=== PATIENT | female | born 1950 | race African-American/Black ===

== ENCOUNTER 2017-08-08 20:48 | Emergency (ER) | payer OTHER ==
[2017-08-08 20:57] VITALS: BP 141/83; PULSE 74; TEMP 97.3; BMI 30.9
--- NOTE | 2017-08-08 21:28 | PDOC ---
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 Patient states she lost her balance after stepping on a toy and fell. She remembers the entire incident, denies hitting head, denies loc , dizziness, heart palpitations. Her daughter was downstairs and immediately went upstairs to investigate after hearing the fall. She found her mother lying on the ground alert and oriented. Patient decided to come to ED d/t weakness lifting her left arm above her head. Patient is not on any blood thinners. Past History - Past Medical History Allergies/Adverse Reactions: Allergies Allergy/AdvReac Type Severity Reaction Status Date / Time No Known Allergies Allergy Verified 08/08/17 21:05 Home Medications: Ambulatory Orders Aspirin 325 mg PO DAILY 08/08/17 Atorvastatin Ca [Lipitor] 10 mg PO HS 08/08/17 Metformin HCl 500 mg PO DAILY 08/08/17 Nifedipine [Nifedipine ER] 60 mg PO DAILY 08/08/17 Spironolactone [Aldactone] 25 mg PO DAILY 08/08/17 Ibuprofen [Motrin -] 600 mg PO TID PRN #21 tablet 08/09/17 Methocarbamol [Robaxin -] 500 mg PO BID PRN #14 tablet 08/09/17 CVA: Yes Diabetes: Yes HTN: Yes - Suicide/Smoking/Psychosocial Hx Smoking History: Never smoked Have you smoked in the past 12 months: No Information on smoking cessation initiated: No Hx Alcohol Use: No Drug/Substance Use Hx: No Review of Systems - Review of Systems Able to Perform ROS?: Yes Comments:: GEN: Denies fever, chills, recent illness HEENTM: Denies sore throat, neck pain, changes in vision, changes in hearing, ear pain, tinnitus Respiratory: Denies cough, wheezing, shortness of breath Cardiac: Denies chest pain, palpitations, lightheadedness, diaphoresis ABD/GI: Denies abdominal pain, nausea, vomiting, diarrhea, constipation : Denies dysuria, burning on urination, increased frequency of urination Musculoskeletal: Endorses left shoulder pain with radiation down her arm, pain to 4th and 5th digits of the left hand. Integumentary: Denies rashes, bruises Neurological: Endorses left arm weakness (acute on chronic); Denies ARDON, dizziness, loss of consciousness, tingling, numbness Hematologic/Lymphatic: Denies anemia, easy bleeding, history of blood clots. All Other Systems Reviewed and Negative Is the patient limited Amharic proficient: No *Physical Exam - Vital Signs Last Vital Signs Temp Pulse Resp BP Pulse Ox 97.3 F L 74 19 141/83 99 08/08/17 20:55 08/08/17 20:55 08/08/17 20:55 08/08/17 20:55 08/08/17 20:55 - Physical Exam Comments: GENERAL: AAOx3, nourished and generally well appearing, NAD HEAD: NCAT EYES: mild ptosis in left eye lid, PERRLA, EOMI, sclera anicteric, conjunctiva clear ENT: Auricles normal inspection, hearing grossly normal, nares patent, no nasal discharge, no congestion, oropharynx clear without exudates, MMM NECK: supple, normal ROM, no LAD, no JVD, no masses, no midline tenderness, mild tenderness to left trapezius to the shoulder RESP: speaking in full sentences, lungs CTAB, symmetrical chest expansion, no respiratory distress HEART: RRR, normal S1-S2, no MRG, peripheral pulses normal and equal bilaterally ABDOMEN: soft, NTND, nlBSx4, no guarding, no rebound, no masses MUSCULOSKELETAL: no CVA Tenderness EXTREMITIES: normal inspection, moving all extremities, full ROM, strength 5/5, sensation grossly intact, no deformities LEFT SHOULDER: mildly ttp over GH joint, no edema, no deformities, no pain on active and passive ROM, able to resist opposing force in all directions w/o pain NEUROLOGICAL: CN II-XII grossly intact, normal speech, normal gait, no focal sensorimotor deficits SKIN: warm, dry, normal turgor, no rashes or lesions noted. Medical Decision Making - Medical Decision Making 66 year old female with pain and weakness of left arm s/p conscious mechanical fall w/o head trauma or loc. arm ttp with radiation to fingers, no neurological deficits, no c/o headache ddx includes but is not limited to accidental trip, cervical fracture, MS pains Pain control Cervical CT Monitor and reassess DC with analgesics if CT negative Discussed negative CT with patient. Patient pain well controlled Discussed return precautions and need for patient to follow up with primary care doctor if the pain does not improve in the next few days or she continues to experience weakness. Patient acknowledged understanding and comfortable with discharge. *DC/Admit/Observation/Transfer Diagnosis at time of Disposition: Muscle pain - Discharge Dispostion Disposition: HOME Condition at time of disposition: Stable Admit: No - Prescriptions Prescriptions: Ibuprofen [Motrin -] 600 mg PO TID PRN #21 tablet PRN Reason: Pain Methocarbamol [Robaxin -] 500 mg PO BID PRN #14 tablet PRN Reason: Muscle Spasms - Referrals Referrals: Pamela Medina MD [Primary Care Provider] - - Patient Instructions Printed Discharge Instructions: How to Prevent Falls Additional Instructions: Prescriptions were sent to the [facility] pharmacy on [facility] You can take 1 tablet Motrin every 8 hours if your have shoulder pain You can also take 1 tablet Robaxin twice a day for muscle pain/spasms Use care when taking this medicine because it can make you tired return to the emergency department immediately if you experience significant worsening of your pain or develop any new or concerning symptoms including weakness, confusion, numbness in your arm. You should follow up with your primary care physician if you continue to experience weakness in your arm for a possible MRI. Print Language: BRAZILIAN
[2017-08-08] MEDS ORDERED: METHOCARBAMOL 500 MG TABLET PO ONE (22:32)
[2017-08-08] MEDS ORDERED: KETOROLAC TROMETHAMINE 10 MG TABLET PO ONE (22:32)
[2017-08-08] MEDS ORDERED: KETOROLAC TROMETHAMINE 15 MG/ML VIAL IM ONE (22:35)
[2017-08-08] MEDS ORDERED: KETOROLAC TROMETHAMINE 15 MG/ML VIAL ONE (22:53)
[2017-08-08] MEDS ORDERED: METHOCARBAMOL 500 MG TABLET ONE (22:53)
== END 2017-08-09 00:45 | disposition home or self-care (01) ==
LOC: JER 20:48
PROC: 3E0233Z Introduction of Anti-inflammatory into Muscle, Percutaneous Approach (ICD-10-PCS; principal; 2017-08-08)
DX: M79.602 Pain in left arm (principal); W18.09XA Striking against other object with subsequent fall, initial encounter; Y93.89 Activity, other specified; Y92.018 Other place in single-family (private) house as the place of occurrence of the external cause; E11.9 Type 2 diabetes mellitus without complications; Z79.84 Long term (current) use of oral hypoglycemic drugs; I69.854 Hemiplegia and hemiparesis following other cerebrovascular disease affecting left non-dominant side; Z85.3 Personal history of malignant neoplasm of breast
CPT/HCPCS: 72125-TC; 96372; 99281-25

== ENCOUNTER 2021-07-02 19:55 | Inpatient (IN) | payer OTHER ==
[2021-07-02 20:25] VITALS: BMI 33.6
[2021-07-02] MEDS ORDERED: SODIUM CHLORIDE 1,000 ML IV SCH (20:45)
[2021-07-02 21:45] LABS: PH,URINE 6.5 (5.0-8.0); URINE APPEARANCE CLEAR; URINE BILIRUBIN NEGATIVE (NEGATIVE); URINE COLOR YELLOW; URINE GLUCOSE (UA) NEGATIVE (NEGATIVE); URINE KETONE NEGATIVE (NEGATIVE); URINE LEUK ESTERASE NEGATIVE (NEGATIVE); URINE NITRITE NEGATIVE (NEGATIVE); URINE PROTEIN NEGATIVE (NEGATIVE); URINE UROBILINOGEN 0.2 mg/dL (0.2-1.0)
[2021-07-02 22:04] LABS: BASO % 0.6 % (0-2.0); EOS % 0.3 % (0-4.5); HEMATOCRIT 37.1 % (32.4-45.2); HEMOGLOBIN 12.3 GM/dL (10.7-15.3); LYMPH % 14.7 % (8-40); MCHC 33.2 g/dl (32.0-36.0); MEAN CELL VOLUME 87.4 fl (80-96); MEAN PLT VOLUME 11.3 fl (7.5-11.1); MONO % 10.8 % (3.8-10.2); NEUT % 73.6 % (42.8-82.8); PLATELET COUNT 107 10^3/uL (134-434); RBC 4.25 M/mm3 (3.60-5.2); RDW 15.7 % (11.6-15.6); WHITE BLOOD COUNT 2.9 K/mm3 (4.0-10.0)
[2021-07-02 22:20] LABS: ALBUMIN 3.7 g/dl (3.4-5.0); MAGNESIUM 1.7 mg/dL (1.8-2.4)
[2021-07-02 22:21] LABS: CALCIUM 9.7 mg/dL (8.5-10.1)
[2021-07-02 22:23] LABS: URIC ACID 3.7 mg/dL (2.6-7.2)
[2021-07-02] MEDS ORDERED: LACTATED RINGERS SOLUTION 1000 ML INFUS.BAG IV ONE (22:23)
[2021-07-02 22:24] LABS: CREATININE 0.9 mg/dL (0.55-1.3); PHOSPHOROUS 3.6 mg/dL (2.5-4.9)
[2021-07-02 22:25] LABS: TOT PROT 7.3 g/dl (6.4-8.2)
[2021-07-02 22:26] LABS: BILIRUBIN,TOTAL 0.4 mg/dL (0.2-1)
[2021-07-02 22:28] LABS: INR 0.95 (0.83-1.09); PROTHROMBIN TIME (PATIENT) 11.5 SEC (9.7-13.0)
[2021-07-02 22:30] LABS: ACTIVATED PTT 32.1 SECONDS (25.2-36.5)
[2021-07-03] MEDS ORDERED: ACETAMINOPHEN 1000 MG/100 ML VIAL (NON FORMULARY) IVPB ONE (01:52)
[2021-07-03] MEDS ORDERED: ACETAMINOPHEN INJECTION 100 ML IVPB ONE (01:54)
[2021-07-03] MEDS ORDERED: LABETALOL HCL 5 MG/1 ML (100MG/20 ML VIAL) IVPUSH ONE ×2 (02:46→08:05)
[2021-07-03] MEDS ORDERED: LABETALOL HCL 5 MG/1 ML (100MG/20 ML VIAL) ONE ×2 (03:13→08:21)
[2021-07-03 08:10] LABS: BASO % 0.6 % (0-2.0); EOS % 0.1 % (0-4.5); HEMATOCRIT 36.3 % (32.4-45.2); LYMPH % 15.4 % (8-40); MCH 28.7 pg (25.7-33.7); MCHC 33.1 g/dl (32.0-36.0); MEAN CELL VOLUME 86.8 fl (80-96); MEAN PLT VOLUME 11.1 fl (7.5-11.1); MONO % 12.7 % (3.8-10.2); NEUT % 71.2 % (42.8-82.8); PLATELET COUNT 92 10^3/uL (134-434); RBC 4.18 M/mm3 (3.60-5.2); RDW 15.6 % (11.6-15.6); WHITE BLOOD COUNT 3.4 K/mm3 (4.0-10.0)
[2021-07-03 08:20] LABS: INR 1.02 (0.83-1.09); PROTHROMBIN TIME (PATIENT) 12.5 SEC (9.7-13.0)
[2021-07-03 08:23] LABS: ACTIVATED PTT 27.3 SECONDS (25.2-36.5)
[2021-07-03 08:24] LABS: CALCIUM 9.1 mg/dL (8.5-10.1)
[2021-07-03 08:25] LABS: ALBUMIN 3.5 g/dl (3.4-5.0); BLOOD UREA NITROGEN 8.7 mg/dL (7-18); MAGNESIUM 1.7 mg/dL (1.8-2.4)
[2021-07-03 08:28] LABS: CREATININE 0.9 mg/dL (0.55-1.3); PHOSPHOROUS 3.8 mg/dL (2.5-4.9)
[2021-07-03 08:29] LABS: BILIRUBIN,TOTAL 0.4 mg/dL (0.2-1)
[2021-07-03] MEDS ORDERED: ASPIRIN 81 MG CHEWABLE TABLETS PO SCH (10:00)
[2021-07-03] MEDS ORDERED: LOSARTAN POTASSIUM 50 MG TABLET PO SCH (10:00)
[2021-07-03] MEDS ORDERED: ASPIRIN COATED 81 MG TABLET.EC ONE (10:20)
[2021-07-03] MEDS ORDERED: LOSARTAN POTASSIUM 50 MG TABLET ONE (10:20)
[2021-07-03] MEDS ORDERED: CLOPIDOGREL BISULFATE 75 MG TABLET (FP) ONE (10:20)
[2021-07-03] MEDS: ASPIRIN COATED 81 MG TABLET.EC PO SCH (10:30)
[2021-07-03] MEDS: CLOPIDOGREL BISULFATE 75 MG TABLET (FP) PO SCH (10:30)
[2021-07-03] MEDS ORDERED: LOSARTAN POTASSIUM 50 MG TABLET PO ONE (14:50)
[2021-07-03] MEDS: LETROZOLE 2.5 MG TABLET (FP) PO SCH (17:41)
[2021-07-03] MEDS ORDERED: ONDANSETRON 4 MG/2 ML VIAL IVPUSH ONE (17:50)
[2021-07-03] MEDS: ATORVASTATIN CA 40 MG TABLET (FP) PO SCH (21:09)
[2021-07-03] MEDS: ACYCLOVIR 400 MG TABLET PO SCH (21:09)
[2021-07-03] MEDS: levETIRAcetam 500 MG TABLET (FP) PO SCH (21:09)
[2021-07-03] MEDS: MIRTAZAPINE 15 MG TABLET (FP) PO SCH (21:36)
[2021-07-03] MEDS ORDERED: PATIENT'S OWN MEDICATION (NON-FORMULARY) (Levetiracetam [Levetiracetam] 750 MG Tablet) PO SCH (22:00)
[2021-07-03] MEDS ORDERED: ATORVASTATIN CA 10 MG TABLET (FP) PO SCH (22:00)
[2021-07-04] MEDS ORDERED: LABETALOL HCL 5 MG/1 ML (100MG/20 ML VIAL) IVPUSH ONE (02:09)
[2021-07-04] MEDS ORDERED: LABETALOL HCL 5 MG/1 ML (100MG/20 ML VIAL) ONE (02:14)
[2021-07-04] MEDS: LOSARTAN POTASSIUM 50 MG TABLET PO SCH (06:51)
[2021-07-04 07:44] LABS: HEMATOCRIT 36.4 % (32.4-45.2); MEAN CELL VOLUME 87.9 fl (80-96); MEAN PLT VOLUME 11.3 fl (7.5-11.1); PLATELET COUNT 78 10^3/uL (134-434); RBC 4.14 M/mm3 (3.60-5.2); RDW 15.8 % (11.6-15.6); WHITE BLOOD COUNT 3.1 K/mm3 (4.0-10.0)
[2021-07-04 08:24] LABS: CALCIUM 8.8 mg/dL (8.5-10.1)
[2021-07-04 08:25] LABS: BLOOD UREA NITROGEN 9.5 mg/dL (7-18)
[2021-07-04 08:28] LABS: CREATININE 0.8 mg/dL (0.55-1.3)
[2021-07-04] MEDS: ACYCLOVIR 400 MG TABLET PO SCH ×2 (09:24→21:13)
[2021-07-04] MEDS: CLOPIDOGREL BISULFATE 75 MG TABLET (FP) PO SCH (09:24)
[2021-07-04] MEDS: ASPIRIN COATED 81 MG TABLET.EC PO SCH (09:24)
[2021-07-04] MEDS: PANTOPRAZOLE 20 MG TABLET PO SCH (09:24)
[2021-07-04] MEDS ORDERED: amLODIPine BESYLATE 5 MG TABLET (FP) PO ONE (10:00)
[2021-07-04] MEDS ORDERED: MIRTAZAPINE 15 MG TABLET (FP) PO SCH (10:00)
[2021-07-04] MEDS ORDERED: LOSARTAN POTASSIUM 50 MG TABLET PO SCH (10:00)
[2021-07-04] MEDS ORDERED: GLYCERIN 1 RECTAL SUPPOSITORY, ADULT RC ONE ×2 (11:37→12:00)
[2021-07-04] MEDS: LETROZOLE 2.5 MG TABLET (FP) PO SCH (13:49)
[2021-07-04] MEDS ORDERED: ACETAMINOPHEN 1000 MG/100 ML VIAL (NON FORMULARY) IVPB ONE (19:26)
[2021-07-04] MEDS ORDERED: MAGNESIUM HYDROX 2400MG/30ML ORAL SUSPENSION 30 ML CUP PO ONE (19:26)
[2021-07-04] MEDS: amLODIPine BESYLATE 5 MG TABLET (FP) PO SCH ×3 (19:55→21:13)
[2021-07-04] MEDS: MIRTAZAPINE 15 MG TABLET (FP) PO SCH (21:11)
[2021-07-04] MEDS: levETIRAcetam 500 MG TABLET (FP) PO SCH (21:13)
[2021-07-04] MEDS: ATORVASTATIN CA 40 MG TABLET (FP) PO SCH (21:13)
[2021-07-04] MEDS ORDERED: DOCUSATE SODIUM 100 MG CAPSULE (FP) PO SCH (22:00)
[2021-07-05 07:14] LABS: HEMATOCRIT 36.7 % (32.4-45.2); HEMOGLOBIN 12.4 GM/dL (10.7-15.3); MCH 28.9 pg (25.7-33.7); MCHC 33.8 g/dl (32.0-36.0); MEAN CELL VOLUME 85.7 fl (80-96); MEAN PLT VOLUME 11.2 fl (7.5-11.1); PLATELET COUNT 87 10^3/uL (134-434); RBC 4.28 M/mm3 (3.60-5.2); RDW 15.8 % (11.6-15.6); WHITE BLOOD COUNT 3.5 K/mm3 (4.0-10.0)
[2021-07-05 07:26] LABS: CALCIUM 8.9 mg/dL (8.5-10.1)
[2021-07-05 07:27] LABS: BLOOD UREA NITROGEN 9.6 mg/dL (7-18)
[2021-07-05 07:30] LABS: CREATININE 0.8 mg/dL (0.55-1.3)
[2021-07-05] MEDS ORDERED: MAGNESIUM SULF 50% (8.12 MEQ/2 ML-1 GM VIAL) IVPB ONE (07:33)
[2021-07-05] MEDS ORDERED: PT OWN MED DRAWER 7, Y5N ONE ×2 (11:03→17:54)
[2021-07-05] MEDS: ASPIRIN COATED 81 MG TABLET.EC PO SCH (11:10)
[2021-07-05] MEDS: amLODIPine BESYLATE 5 MG TABLET (FP) PO SCH (11:11)
[2021-07-05] MEDS: LOSARTAN POTASSIUM 50 MG TABLET PO SCH (11:11)
[2021-07-05] MEDS: CLOPIDOGREL BISULFATE 75 MG TABLET (FP) PO SCH (11:12)
[2021-07-05] MEDS: LETROZOLE 2.5 MG TABLET (FP) PO SCH (11:13)
[2021-07-05] MEDS: ACYCLOVIR 400 MG TABLET PO SCH (11:15)
[2021-07-05] MEDS: PANTOPRAZOLE 20 MG TABLET PO SCH (11:17)
[2021-07-05 15:29] VITALS: PULSE 105
[2021-07-05 19:23] VITALS: BP 124/54; TEMP 98.4
== END 2021-07-05 19:43 | disposition home or self-care (01) | DRG 948 ==
LOC: JER 19:55 → JERBED 23:30 → J4S 07-03 12:27
PROVIDERS: ADMIT Internal Medicine; ATTEND Internal Medicine
DX: R53.81 Other malaise (principal); C90.00 Multiple myeloma not having achieved remission; I69.354 Hemiplegia and hemiparesis following cerebral infarction affecting left non-dominant side; E11.9 Type 2 diabetes mellitus without complications; Z79.84 Long term (current) use of oral hypoglycemic drugs; I10 Essential (primary) hypertension; D69.59 Other secondary thrombocytopenia; T45.1X5A Adverse effect of antineoplastic and immunosuppressive drugs, initial encounter; G40.909 Epilepsy, unspecified, not intractable, without status epilepticus; D70.1 Agranulocytosis secondary to cancer chemotherapy; Z85.3 Personal history of malignant neoplasm of breast
CPT/HCPCS: 36415; 70450-TC; 70551-TC; 71045-TC-FY; 72125-TC; 80048; 80053; 80061; 80307; 81003; 82550; 82553; 82607; 83605; 83735; 84100; 84439; 84443; 84484; 84550; 85025; 85027; 85610; 85730; 86850; 86900; 86901; 93005; 93010; 97116-GP; 97161-GP; 99285-25; C9803; J0131; U0003; U0005